=== PATIENT | male | born 1995 | race African-American/Black ===

== ENCOUNTER 2023-06-06 21:09 | Emergency (ER) | payer SELFPAY ==
[2023-06-06 21:41] LABS: APPEARANCE,URINE CLEAR; BILIRUBIN,URINE NEGATIVE (NEGATIVE); COLOR,URINE YELLOW; GLUCOSE,URINE NEGATIVE (NEGATIVE); KETONES,URINE TRACE mg/dL (NEGATIVE); LEUKOCYTE ESTERASE,URINE NEGATIVE (NEGATIVE); NITRITE,URINE NEGATIVE (NEGATIVE); OCCULT BLOOD,URINE TRACE-LYSED (NEGATIVE); PROTEIN,URINE NEGATIVE (NEGATIVE)
[2023-06-06 21:52] LABS: BACTERIA,URINE FEW (NEGATIVE); EPITHELIAL CELLS,URINE RARE (NONE-FEW); MUCUS,URINE LIGHT (NONE-MOD)
[2023-06-06] MEDS: LIDOCAINE 1% IM ONE (23:01)
[2023-06-06] MEDS: CEFTRIAXONE IM ONE (23:01)
[2023-06-06] MEDS: Doxycycline 100 MG Cap PO ONE (23:01)
[2023-06-06 23:13] LABS: C. TRACHOMATIS BY PCR DETECTED; N. GONORRHOEAE BY PCR DETECTED
== END 2023-06-06 23:11 | disposition home or self-care (01) ==
LOC: MW.ED 21:09
DX: A64 Unspecified sexually transmitted disease (principal); F17.210 Nicotine dependence, cigarettes, uncomplicated
CPT/HCPCS: 81001; 87491; 87591; 96372; 99283; A9270; J0696; J3490